=== PATIENT | male | born 1990 | race Caucasian/White ===

== ENCOUNTER 2024-04-03 22:51 | Inpatient (IN) | payer OTHER, SELFPAY ==
[2024-04-03] MEDS: DILAUDID 0.5 MG IV (18:11)
[2024-04-03] MEDS: ZOFRAN 4 MG IV (18:12)
[2024-04-03 18:19] VITALS: BP 127/68
[2024-04-03 18:23] VITALS: BMI 29.5
[2024-04-03] MEDS: NSS 1000 IV ×2 (18:29→23:56)
[2024-04-03] MEDS: TORADOL 30 MG IV (18:29)
[2024-04-03 18:41] LABS: % Basophils 0.4 % (0-2); % Eosinophils 0.3 % (0-6); % Immature Granulocytes 0.4 % (0-0.5); % Lymphocytes 10.6 % (20.5-51.1); % Neutrophils 78.3 % (42.2-75.2); Absolute Basophils 0.1 10^3/uL (0-0.2); Absolute Eosinophils 0.1 10^3/uL (0-0.7); Absolute Immature Granulocytes 0.1 10^3/uL (0-0.05); Absolute Lymphocytes 1.5 10^3/uL (1.2-3.4); Absolute Monocytes 1.4 10^3/uL (0.1-0.6); Absolute Neutrophils 11.2 10^3/uL (1.4-6.5); Hematocrit 41.5 % (39.0-52.0); Hemoglobin 14.7 g/dL (13.0-18.0); Mean Corp Hgb Conc. 35.4 g/dL (33.0-37.0); Mean Corpuscular Hgb 32.3 pg (27.0-31.0); Mean Corpuscular Volume 91.2 fL (80.0-94.0); Mean Platelet Volume 9.5 fL (7.4-10.4); Nucleated Red Blood Cells % 0 % (-); Platelet Count 261 10^3/uL (130-400); Red Blood Cell Count 4.55 10^6/uL (4.70-6.10); Red Cell Dist. Width 12.7 % (11.5-14.5); White Blood Cell Count 14.3 10^3/uL (4.8-10.8)
--- NOTE | 2024-04-03 19:01 | ED.GENMED ---
History of Present Illness
General
Chief Complaint: Flank Pain
Source: patient
Exam Limitations: none
Time Seen by Provider: 04/03/24 18:04
Nursing documentation reviewed up to this point in time: agreed with
History of Present Illness
History of Present Illness:
The patient is a pleasant 34-year-old man with a past medical history of Down syndrome brought in by his mother for acute onset of left-sided pain and vomiting. Patient is a vague historian, as mom states is his normal baseline. Mom denies a
history of kidney stones in the past. Patient found to have a fever on arrival. Mom states he was completely fine earlier in the day
Mom reports that he was recently diagnosed with folliculitis and has taken at least 7 days of Bactrim. Mom reports that this rash is all over his body and has been causing him to be very itchy.
Past History
Past History
ED Past Medical History: IDDM and Other (Down syndrome, celiac disease)
ED Past Surgical History: Orthopedic and Other (hernia)
Social History
Tobacco: Non-smoker
Alcohol: None
Drug: None
Personal: Single
Living: with family
Employment: Disabled
Family History
Family History: Other (He has a sister who is an insulin-dependent diabetic his sister also has asthma and asked her dystrophy)
Review of Systems
Review of Systems
Allergies reviewed?: Yes
Other source history: family
All Other Systems: ROS reviewed and negative except as documented in HPI and ROS
Constitutional: Reports no symptoms
EENT: Reports no symptoms
Respiratory: Reports no symptoms
Cardiac: Reports no symptoms
ABD/GI: Reports vomiting
: Reports flank pain
Musculoskeletal: Reports no symptoms
Skin: Reports itching and rash (Itchy rash for several days to weeks all over body)
Neurological: Reports no symptoms
Endocrine: Reports no symptoms
Hematologic/Lymphatic: Reports no symptoms
Psychiatric: Reports no symptoms
Phy Exam
Physical Exam
Physical Exam:
Physical Exam
General: Patient appears very uncomfortable. He is vomiting
Neck: supple. no meningeal signs. normal psoterior pharynx
Heart: s1/s2 regular rate and rhythm, no murmur. equal radial pulses.
Lungs: no acute respiratory distress. clear bilaterally
Abdomen: normal bowel sounds. not tender. no CVAT, no pulsatile mass
Neuro: alert and oriented. no focal neurological deficits
Skin: no rash
Psychiatric: well kept. interactive and cooperative
Extremities: no edema. no calf tenderness. negative homans. good distal pulses
Course
Orders/Labs/Results
Orders:
Orders
04/03/24 18:04
HYDROmorphone [Dilaudid] 0.5 mg IV NOW STA
04/03/24 18:05
Ondansetron Injectable [Zofran] 4 mg IV NOW STA
04/03/24 18:23
Ketorolac [Toradol] 30 mg IV NOW STA
04/03/24 18:24
0.9% Sodium Chloride 1000 ml [Nss] 1,000 ml IV BOLUS
04/03/24 18:33
Complete Blood Count/With Diff Urgent
Comprehensive Metabolic Panel Urgent
04/03/24 18:57
Urinalysis Reflex To Culture Urgent
Date Specimen was Collected: 04/03/24
Time Specimen was Collected: 18:56
Urine Microscopic Reflex Cult Urgent
04/03/24 19:27
CT Abd/pelvis W Iv Cont Urgent
Comment:
Reason For Exam: fever, left flank pain
04/03/24 20:59
Lactic Acid Urgent
Abnormal Lab Results
04/03/24 04/03/24
18:33 18:57
WBC 14.3 H 10^3/uL
(4.8-10.8)
RBC 4.55 L 10^6/uL
(4.70-6.10)
MCH 32.3 H pg
(27.0-31.0)
Abs Immat Gran (auto) 0.1 H 10^3/uL
(0-0.05)
Absolute Neuts (auto) 11.2 H 10^3/uL
(1.4-6.5)
Absolute Monos (auto) 1.4 H 10^3/uL
(0.1-0.6)
Neutrophils % 78.3 H %
(42.2-75.2)
Lymphocytes % 10.6 L %
(20.5-51.1)
Monocytes % 10.0 H %
(1.7-9.3)
Chloride 95 L mmol/L
(98-107)
Glucose 207 H mg/dl
(70-99)
Urine Ketones 1+ A
(Negative)
Ur Occult Blood Reflex 1+ A
(Negative)
Urine Bacteria (Reflex) Few A
(Negative)
04/03/24 18:33
04/03/24 18:33
Vital Signs
Initial and Last Documented VS:
Initial Vital Signs
Temp Pulse Resp BP Pulse Ox
100.4 F H 103 19 127/68 94
04/03/24 18:19 04/03/24 18:19 04/03/24 18:19 04/03/24 18:19 04/03/24 18:19
Last Documented Vital Signs
Temp Pulse Resp BP Pulse Ox
100.4 F H 103 19 127/68 94
04/03/24 18:19 04/03/24 18:19 04/03/24 18:19 04/03/24 18:19 04/03/24 18:19
MDM/Problems Addressed
Differential Diagnosis Includes:
Left renal colic, pyelonephritis, acute diverticulitis, aortic dissection
MDM/Problems Addressed:
Patient presents with acute left flank pain and vomiting
Chronic conditions affecting care: DM
Acute Exacerbation and/or Progression of Chronic Illness: DM
*Radiology
Radiology exam reviewed: radiology read reviewed
*Pulse Oximetry
Patient hypoxic: no
*Critical Care Nurse Practitioner Interpretation
Rate: normal
Interpretation: normal
Rhythm: sinus
*Critical Care Note
Total Time (30-74mins, 75-104mins- exclusive of procedures): Not Applicable
Data Reviewed
Review of Other/Old Records Reveals: Radiology Studies (CT abdomen pelvis reviewed from 2019 which shows possible enteritis)
Source: patient and family (Mother)
Update Note
Update Note:
Patient still has left flank pain and appears flushed. CAT scan does not show clear cause of left flank pain and vomiting. Patient has had no diarrhea. I am still concerned patient may have an infected stone. Patient is hemodynamically stable
and there is no sign of sepsis.
ED Attending Note
-
Portions of this chart may have been created with voice recognition software.� Occasional wrong word or��sound alike� substitutions may have occurred due to the inherent limitations of voice recognition software.
Discharge Plan
Departure
Patient Disposition: Admit
Date of Disposition: 04/03/24
Time of Disposition: 20:59
Admit to: Med/Surg
Presentation/result/management discussed w/ accepting MD/DO: Hospitalist
Patient with high blood pressure during this ER visit?: Yes
Condition: Good
Covid-19: Not Applicable
Discharge Problem:
Fever, Acute abdominal pain in left flank
Prescriptions:
No Action
insulin glargine [Lantus U-100 Insulin] 1,000 UNITS/10 ML solution
29 units SC .AM
insulin glargine [Lantus U-100 Insulin] 1,000 UNITS/10 ML solution
15 units SC HS
insulin lispro [Humalog U-100 Insulin] 100 UNIT/ML solution
3 - 12 unit SC HS
insulin lispro [Humalog U-100 Insulin] 100 UNIT/ML solution
5 - 10 unit SC BID@1130
insulin lispro [Humalog U-100 Insulin] 100 UNIT/ML solution
2 - 8 unit SC DAILY@0730
loratadine 10 MG capsule
10 mg PO DAILY
insulin lispro 100 UNIT/ML insulin pen, half-unit
12 - 15 unit SQ .1630 DINNER TIME
prochlorperazine maleate 10 MG tablet
10 mg PO Q6HPRN PRN (Reason: Nausea) Qty: 10 0RF
Referrals:
Cipriano Llanes MD [Primary Care Provider] -
Interventions
Interventions:
*General Assessment Last Done: 04/03/24 18:23
*Neglect/Abuse Screening Last Done: 04/03/24 18:23
*ED COVID-19 Vaccine History Last Done: 04/03/24 18:23
TA-Ohefty-Ftamvpdvzr Assessment Last Done: 04/03/24 18:27
ED-Male Genitourinary Assessment Last Done: 04/03/24 18:27
Discharge Date and Time
Print Language: BRUNEIAN
[2024-04-03 19:03] LABS: ALT (SGPT) 34 U/L (0-50); AST (SGOT) 28 U/L (17-59); Albumin 4.4 g/dl (3.5-5.0); Alkaline Phosphatase 104 U/L (38-126); Blood Urea Nitrogen 20 mg/dl (9-20); Calcium 9.2 mg/dl (8.4-10.2); Carbon Dioxide 22 mmol/L (22-30); Chloride 95 mmol/L (98-107); Estimated Creatinine Clearance 68 ml/min; Glucose 207 mg/dl (70-99); Sodium 135 mmol/L (135-145); Total Bilirubin 0.9 mg/dl (0.2-1.3); Total Protein 7.7 g/dl (6.3-8.2); eGFR > 60.00
[2024-04-03 19:21] LABS: Urine Albumin Trace (Neg - Trace); Urine Bilirubin Negative (Negative); Urine Character Clear (Clear); Urine Color Yellow; Urine Glucose Negative (Negative); Urine Ketone 1+ (Negative); Urine Leukocyte Negative (Negative); Urine Nitrite Negative (Negative); Urine Occult Blood 1+ (Negative); Urine Specific Gravity 1.025 (<1.030); Urine Urobilinogen Negative (Neg - 1+)
[2024-04-03 19:29] LABS: Urine Bacteria Few (Negative); Urine Red Blood Cell 0-2 /HPF (0-2); Urine Squamous Cell 0-2 /LPF (Few); Urine White Cell 0-2 /HPF (0-5)
--- NOTE | 2024-04-03 21:16 | HPS.HSE ---
Family Physician
-
Family Physician: Cipriano Llanes
Chief Complaint
-
Right flank pain with vomiting, follicular rash abdomen, groin, buttocks expanding
History of Present Illness
34-year-old male with history of Down syndrome brought in by his mother for acute onset of right-sided flank pain with vomiting. Mom is giving his medical history states he is at his normal baseline. No history of prior renal calculi. He was
noted to be febrile 100.4 F with tachycardia and leukocytosis in the ER. He was recently on Bactrim x 7 days for folliculitis to his abdomen, groin and buttocks with excoriation from scratching. He was on prior Keflex for same symptoms. His
mother reports the rash now started spreading scattered to arms, legs and trunk. He is itching despite 50 mg of Benadryl twice daily. He normally takes loratadine for seasonal allergies she has been holding due to giving him Benadryl. Patient
points to his right flank area and states I have pain in my back. He has CVA tenderness on exam of the right flank. He denies any cough, chest pain, shortness of breath, diarrhea, dysuria, headache. He has past medical history of Down syndrome,
celiac disease, IDDM since age 8 months.
Medical History
Past Medical History
Past Medical History: Reports Other
Additional Past Medical History:
Down syndrome
IDDM since age 8 months old
Celiac disease
Past Surgical History: Reports Other
Additional Past Surgical History:
Hernia repair
Social History
Tobacco: Non-smoker
Alcohol: None
Drug: None
Personal: Single
Living: With Family
Employment: Disabled
Family History
Family History: Not pertinent
Allergies / Home Medications
Allergies reflects when Allergies were last updated in [facility].
Home Medications with original date entered in [facility]
Allergy/Medication List:
Allergies
Allergy/AdvReac Type Severity Reaction Status Date / Time
No Known Allergies Allergy Verified 12/14/22 17:46
Home Medications
loratadine 10 mg capsule 10 mg PO DAILY 09/20/20
diphenhydramine HCl 50 mg capsule 100 mg PO Q6HPRN PRN rash 04/03/24
insulin detemir U-100 100 unit/mL subcutaneous solution (Levemir U-100 Insulin) 12 unit SC HS 04/03/24
insulin detemir U-100 100 unit/mL subcutaneous solution (Levemir U-100 Insulin) 29 unit SC DAILY 04/03/24
insulin lispro 100 unit/mL subcutaneous solution 0 sliding scale dose SC ACHS 04/03/24
sulfamethoxazole 800 mg-trimethoprim 160 mg tablet (Bactrim DS) 1 tab PO BID 04/03/24
Review of Systems
-
History Source: Patient and Family (Mother and father at bedside)
A 12 point ROS was completed and negative except as noted: Yes
Constitutional: Reports Fever; Denies Chills
EENT: Denies Sore Throat or Runny Nose
Respiratory: Denies Cough or Trouble Breathing
Cardiac: Denies Chest Pain, Diaphoresis or Palpitations
Abdomen/GI: Reports Vomiting; Denies Abdominal Pain, Nausea, Diarrhea, Constipated, Bloody Stools or Black Stools
: Reports Flank Pain (Right); Denies Dysuria, Incontinence or Difficulty Voiding
Musculoskeletal: Denies Joint Pain or Edema
Skin: Reports Itching and Rash (Follicular rash to abdomen, groin buttocks with excoriation from scratching, follicular scattered rash to arms, legs and trunk)
Neurological: Denies Dizzy or Headache
Endocrine: Reports No Symptoms
Hematologic/Lymphatic: Reports No Symptoms
Psych: Reports Calm
Physical Exam
Vital Signs
Vital Signs
Temp Pulse Resp BP Pulse Ox
100.4 F H 103 19 127/68 94
04/03/24 18:19 04/03/24 18:19 04/03/24 18:19 04/03/24 18:19 04/03/24 18:19
Physical Exam
General: Comfortable, Conversant and Fever
HEENT: NormoCephalic, Anicteric, Moist mucous membranes, PERRLA, [place] Conjunctivae and No Ptosis
Respiratory: Clear; No Wheezes, Rales or Rhonchi
Cardiac: S1/S2 and Tachycardia (Sinus); No Murmur, Rub, Gallop or Peripheral Edema
Breast: Deferred by me
GI: Soft, Non Tender, Non Distended, Normal Bowel Sounds and No Hepatosplenomegaly
Rectal: Deferred by Provider
Genito-urinary: Costovertebral angle tend (Right flank)
Musculoskeletal: Clubbing (All fingernails), No Cyanosis and No Edema
Skin: Warm, Dry and Rash (Follicular rash to abdomen, groin buttocks with excoriation from scratching, follicular scattered rash to arms, legs and trunk); No Jaundice
Neuro: Awake, Alert, Oriented (To first and last name, some of symptoms, mother and father) and No Sensory Deficits; No Slurred Speech, Facial Droop or Tremors
Psych: Calm
Laboratory Results
-
04/03/24 18:33
04/03/24 18:33
Laboratory Results
Total Bilirubin 0.9 mg/dl (0.2-1.3) 04/03/24 18:33
AST 28 U/L (17-59) 04/03/24 18:33
ALT 34 U/L (0-50) 04/03/24 18:33
Alkaline Phosphatase 104 U/L (38-126) 04/03/24 18:33
Impression/Plan
-
Impression/plan:
Admit to MedSurg
# SIRS with Left flank pain concern for poss pyelonephritis
Temp 100.4 F, HR 103, 127/68, WBC 14.3
Patient has been on 7 days of Keflex followed by Bactrim times several days for recent folliculitis could be obscuring urinalysis results today
-Tylenol as needed fever
-IV Zosyn
-Follow urine culture
-Blood culture x 1
-Toradol, Dilaudid prn pain
-Consult Urology- dr orosco looked at ct scan -no stone or obvious pyelo
- CLear liquid
consult I/d
- Iv Nss
follow cbc, cmp
CT abdomen pelvis: Moderate diffuse bladder wall thickening concern for cystitis versus bladder outlet obstruction new.
Findings suggesting mild colitis of the sigmoid colon,
moderate fecal material throughout the colon progress, small pericardial effusion. Stable
#Follicular rash abdomen, groin, buttocks�scattered to arms and legs likely fungal due to no improvement
Patient completed 7 days of Keflex then 7 days of recent Bactrim with no improvement
Rash is excoriated to groin and buttocks with areas of bleeding from scratching
-Will consult ID
-Apply topical myconazole antifungal to groin and buttocks
#IDDM since age 8 months old
-Pt on Levemir 29 units subcu daily, 12 units SQ at bedtime
will put pt on clear liquid diet will give 1/2 dose above insulin regimens
-Accu-Cheks before meals and at bedtime, 3 AM with SSI coverage
#Celiac disease
-Celiac diet
DVT prophylaxis
Subcu heparin
Full code
--- NOTE | 2024-04-03 22:34 | W.PN.UPDATE ---
Update Note
Progress Note Update
This is an addendum to the H&P written by Kirsten Wolfe on 04/03/2024. Patient seen and examined independently with [facility] ATTENDANT.
34-year-old male past medical history of Down syndrome, diabetes, celiac disease, presenting with severe right-sided flank pain starting acutely today associated with episode of vomiting. No diarrhea. Also febrile.
Patient has had development of pustular rash involving the abdomen's spreading to the upper extremities and hands as well as face and butt. He was started on Keflex without improvement after week which was switched to Bactrim with worsening of the
rash.
Urinalysis unremarkable. CT abdomen pelvis shows moderate diffuse bladder wall thickening concerning for cystitis versus bladder outlet obstruction. Findings suggesting mild colitis of sigmoid colon.
Patient meets SIRS criteria. Concerned for obstructive nephrolithiasis versus pyelonephritis. Urology looked at CT scan without concern for acute pyelonephritis versus obstructive stone. Clear liquid diet. Check blood culture. IV fluids. Zosyn.
Patient has pustular rash involving abdomen, lower extremities, hands and butt. He is up-to-date with his childhood vaccinations and had chickenpox as a child. Likely folliculitis possibly fungal since no improvement with oral antibiotics vs less
likely scabies. Miconazole topical. ID consulted.
[2024-04-03] MEDS: LANTUS 0.06 UNITS SC (22:36)
[2024-04-03 22:37] LABS: Glucose - Point of Care 260 mg/dl (70-99)
[2024-04-03] MEDS: ZOSYN 50 IV (22:37)
[2024-04-03 23:46] VITALS: BP 109/66
[2024-04-04 00:02] VITALS: BMI 31.1
[2024-04-04] MEDS: DILAUDID 1 MG IV (00:07)
[2024-04-04] MEDS: DESENEX/MITRAZOL/ZEASORB 1 APPLIC TOPICAL ×3 (00:32→20:31)
[2024-04-04 00:55] LABS: Lactic Acid 0.9 mmol/L (0.7-2.0)
[2024-04-04] MEDS: ZOSYN 50 IV ×4 (03:32→22:28)
[2024-04-04] MEDS: ZOFRAN 4 MG IV ×3 (05:53→22:29)
[2024-04-04] MEDS: TORADOL 15 MG IV ×2 (05:53→22:28)
[2024-04-04 06:00] VITALS: BMI 31.1
[2024-04-04 07:30] VITALS: BP 109/57
[2024-04-04 07:36] LABS: % Basophils 0.2 % (0-2); % Immature Granulocytes 0.5 % (0-0.5); % Lymphocytes 3.5 % (20.5-51.1); % Monocytes 8.3 % (1.7-9.3); % Neutrophils 87.5 % (42.2-75.2); Absolute Immature Granulocytes 0.1 10^3/uL (0-0.05); Absolute Lymphocytes 0.5 10^3/uL (1.2-3.4); Absolute Monocytes 1.2 10^3/uL (0.1-0.6); Absolute Neutrophils 13.2 10^3/uL (1.4-6.5); Hematocrit 37.3 % (39.0-52.0); Mean Corp Hgb Conc. 34.9 g/dL (33.0-37.0); Mean Corpuscular Hgb 33.4 pg (27.0-31.0); Mean Corpuscular Volume 95.9 fL (80.0-94.0); Mean Platelet Volume 9.7 fL (7.4-10.4); Nucleated Red Blood Cells % 0 % (-); Platelet Count 214 10^3/uL (130-400); Red Blood Cell Count 3.89 10^6/uL (4.70-6.10); Red Cell Dist. Width 12.9 % (11.5-14.5)
--- NOTE | 2024-04-04 07:52 | W.PN.HOSP.TC ---
Today's Communication/Plan
-
Patient's glucose was found to be 380 after eating breakfast. -Insulin aspart 15 units given immediately to help bring serum glucose level back within normal limits. We will reassess blood glucose prior to him eating his lunch and will determine
whether an increase in basal insulin is warranted.
Assessment / Plan
Assessment / Plan
CC: Flank pain
HPI: Patient is a 34-year-old male with a past medical history of Down syndrome brought in by his mother for acute onset left-sided pain and vomiting. Patient is a poor historian and the mom states that that is his normal baseline. History
obtained from mother. Mom denies a history of kidney stones in the past and the patient was found to have a fever on arrival. Mother stated that he was completely fine earlier in the day. He was recently diagnosed with folliculitis and was given
7 days of Bactrim.
Assessment/Plan:
-SIRS with left flank pain: Monitoring
Concern for possible pyelonephritis
Temperature was 100.4 �F, heart rate at 103, blood pressure 127/68, and white blood cells of 14.3 in the emergency department
Patient had been on 7 days of Keflex followed by Bactrim for recent folliculitis
Antipyretics as needed
IV Zosyn
Await urine culture result
Await blood culture result
Urology consult
Patient on a clear liquid diet
Appreciate infectious diseases consult�they recommend continuing empiric Zosyn for today. There is an unclear etiology for the leukocytosis and cultures are pending. Leukocytosis may be reactive in nature and this can be ascertained following
cultures.
CT of the abdomen and pelvis in the emergency department showed diffuse bladder wall thickening with concern of cystitis versus bladder outlet obstruction. There were findings suggesting mild colitis of the sigmoid colon. Moderate fecal material
throughout the colon.
-Follicular rash of the abdomen, groin, buttocks: Improving
Topical miconazole nitrate given
-Insulin-dependent diabetes: Monitoring-uncontrolled
Patient on Levemir 25 units subcu daily and 12 units subcu at bedtime
Currently uncontrolled - HbA1c is 9
Patient currently on a clear liquid diet
Accu-Cheks before meals and at bedtime
High resistance insulin sliding scale
Patient's glucose was found to be 380 after eating breakfast. -Insulin aspart 15 units given immediately to help bring serum glucose level back within normal limits. We will reassess blood glucose prior to him eating his lunch and will determine
whether an increase in basal insulin is warranted.
We will continue to monitor the patient's anion gap -oral bicarb given
-Celiac disease:
Patient will be resumed on a celiac diet once his diet is advanced.
Full CODE STATUS
DVT prophylaxis: Subcu heparin
Anticipated Discharge: 24 - 48 hours
Subjective/Interval History
-
Date of Service: April 04, 2024
Objective Data
-
Labs:
Labs
04/04/24 06:29
Vital Signs:
Vital Signs
Temp Pulse Resp BP Pulse Ox
98.4 F 103 14 109/66 93
04/03/24 23:46 04/03/24 23:46 04/03/24 23:46 04/03/24 23:46 04/03/24 23:46
I&O
04/03/24 04/04/24 04/05/24
06:59 06:59 06:59
Intake Total 890 / 890
Balance 890 / 890
Review of Systems
-
History Source: Patient
Constitutional: Reports No Symptoms
EENT: Reports No Symptoms Reported
Respiratory: Reports No Symptoms
Cardiac: Reports No Symptoms
Abdomen/GI: Reports Bloated
Breast: Reports No Symptoms
Genitourinary: Reports No Symptoms
Musculoskeletal: Reports No Symptoms
Skin: Reports No Symptoms
Neuro: Reports No Symptoms
Endocrine: Reports No Symptoms
Hematologic / Lymphatic: Reports No Symptoms
Allergy / Immunology: Reports No Symptoms
Physical Exam
-
General: Well Developed, Well Nourished, No Apparent Distress and Other (Mentions mild abdominal bloating)
HEENT: Normocephalic, Atraumatic and Moist Mucous Membranes
Respiratory: Clear to Auscultation
Cardiac: Regular Rhythm and S1/S2
Breast: Deferred by me
GI: Soft, Normal Bowel Sounds and Distended
Rectal: Deferred by Provider
Genito-urinary: Deferred by me
Musculoskeletal: No Clubbing, No Cyanosis and No Edema
Skin: Warm and Dry
Neuro: Awake, Alert, Oriented and AO x 3
Psych: Calm
[2024-04-04 08:10] LABS: ALT (SGPT) 27 U/L (0-50); AST (SGOT) 23 U/L (17-59); Albumin 3.3 g/dl (3.5-5.0); Alkaline Phosphatase 90 U/L (38-126); Blood Urea Nitrogen 20 mg/dl (9-20); Calcium 8.1 mg/dl (8.4-10.2); Carbon Dioxide 14 mmol/L (22-30); Chloride 99 mmol/L (98-107); Estimated Creatinine Clearance 76 ml/min; Glucose 380 mg/dl (70-99); Potassium 4.5 mmol/L (3.5-5.1); Sodium 131 mmol/L (135-145); Total Bilirubin 1.4 mg/dl (0.2-1.3); Total Protein 6.1 g/dl (6.3-8.2); eGFR > 60.00
[2024-04-04 08:27] LABS: Glucose - Point of Care 360 mg/dl (70-99)
[2024-04-04] MEDS: NOVOLOG FLEXPEN-HIGH RESISTANCE 12 UNITS SC ×2 (08:34→18:29)
[2024-04-04] MEDS: HEPARIN 5000 UNITS SC ×2 (08:35→20:29)
[2024-04-04] MEDS: CLARITIN 10 MG PO (08:35)
[2024-04-04] MEDS: NSS 1000 IV (09:54)
--- NOTE | 2024-04-04 10:44 | CM ---
Reviewed the chart notes and spoke with the patient and mother at the bedside. The patient resides with his mother in a one story home with one step to enter. The mother reports no DME/VN/SNF in the past. The patient has a caregiver Sunday
through Sunday from 8am-4pm through the waiver program. The patient's pharmacy of choice is the [facility]. CM continues to be available to patient/family and is monitoring medical plan for needs at discharge.
Plan: Discharge to home when medically stable. No anticipated needs identified at this time.
[2024-04-04] MEDS: SODIUM BICARBONATE 1300 MG PO ×3 (11:22→22:45)
[2024-04-04] MEDS: LANTUS 0.14 UNITS SC (11:22)
[2024-04-04 11:36] VITALS: BP 85/53; BP 93/54; PULSE 104
[2024-04-04 12:31] LABS: Glucose - Point of Care 503 mg/dl (70-99)
[2024-04-04] MEDS: NOVOLOG FLEXPEN 15 UNITS SC (12:49)
[2024-04-04] MEDS: NOVOLOG FLEXPEN-HIGH RESISTANCE SC ×2 (12:58→17:23)
--- NOTE | 2024-04-04 13:01 | CON.ID ---
Consultation
-
Date/Time Consultation Requested: 04/03/2024 2215
Date/Time Consultation Performed: 04/04/2024 1220
Requesting Provider: Kirsten Wolfe
Performing Provider: Dr. Mcneill
Reason for Consultation: Rash, nausea/vomiting, back pain
Chief Complaint / Past History
History of Present Illness
Angelito Gatica is a 34-year-old man with a significant past medical history of Down syndrome being evaluated at the request of Kirsten Wolfe in regards to back pain, folliculitis and an episode of nausea and vomiting. History is obtained from chart
review, along with patient interview, and history obtained from the patient's mother was at the bedside.
The patient's mom reports that approximately 2 weeks ago he had an episode of developing some folliculitis in the central chest area. He has had this before, and she reached out to his PCP and was prescribed Keflex for 7 days. Around the same time
he also developed some flank rash, which she is not sure whether it was related, but it did precede the initiation of antibiotics. Over the next week there was little improvement, and approximately 7 days ago the patient was transitioned to
Bactrim, again with little improvement in the lateral abdominal rash, but with some noted extension into the groin area.
Yesterday, the patient was with his caregiver and developed some severe back pain, along with several episodes of vomiting. Because this is out of his normal, he was brought to the emergency room for further evaluation. Here he was found to have a
leukocytosis. Workup for potential nephrolithiasis is negative, and Infectious Diseases is asked to comment upon further antimicrobial recommendations.
At present, the patient reports that he is feeling somewhat improved, and notes no pain at the present. The rash is noted to be somewhat pruritic, and the mother reports that she has been giving him Benadryl, again without any change in the rash
but does take away some of the pruritus. She notes that the patient uses cotton undergarments, and does often sweat at night. He also bathes daily.
Past History
Additional Past Medical History:
IDDM (uncontrolled; HbA1c = 9)
Down syndrome
Celiac disease
Additional Past Surgical History:
Hernia repair
Cholecystectomy
Allergy History:
No Known Allergies Allergy (Verified 12/14/22 17:46)
Medications Reviewed: Yes
Current Antibiotics:
Zosyn 3.375 g IV every 6 hours
Social History
Tobacco: Non-Smoker
Alcohol: None
Drug: None
Personal: Single
Living: With Family
Employment: Not Employed
Family History
Family History: Not Pertinent
Review of Systems
Vital Signs
Temp Pulse Resp BP Pulse Ox
98.7 F 104 16 109/57 94
04/04/24 07:30 04/04/24 07:30 04/04/24 07:30 04/04/24 07:30 04/04/24 07:30
Physical Exam
Physical Exam
Constitutional: No Acute Distress, Comfortable and Non-toxic
Eyes: Pupils Equal, Pupils Round, No Conjunctival Hemorrhage and Sclera Anicteric
Oral: No Thrush and No Ulcers
Cardiovascular: Regular Rate and S1/S2; Negative S3/S4
Pulmonary: Clear; Negative Wheezes, Rales or Rhonchi
Gastrointestinal: Soft, Non Tender, Non Distended, Normal Bowel Sounds, No Rebound and No Guarding
Genito-Urinary: Negative Malik or CVA Tenderness
Extremities: Negative Edema, Cyanosis or Erythema
Skin: Rash (Maculopapular rash noted on lateral abdominal area, and the inferior pectoral area, and also the medial proximal thigh area.)
Neurological: Awake and Alert
Psychological: Calm
.
Lab / Diagnostic Study Results
04/04/24 06:29
Abs Immat Gran (auto) 0.1 10^3/uL (0-0.05) H 04/04/24 06:29
Absolute Neuts (auto) 13.2 10^3/uL (1.4-6.5) H 04/04/24 06:29
Absolute Lymphs (auto) 0.5 10^3/uL (1.2-3.4) L 04/04/24 06:29
Absolute Monos (auto) 1.2 10^3/uL (0.1-0.6) H 04/04/24 06:29
Absolute Basos (auto) 0.0 10^3/uL (0-0.2) 04/04/24 06:29
Immature Gran % 0.5 % (0-0.5) 04/04/24 06:29
Neutrophils % 87.5 % (42.2-75.2) H 04/04/24 06:29
Lymphocytes % 3.5 % (20.5-51.1) L 04/04/24 06:29
Monocytes % 8.3 % (1.7-9.3) 04/04/24 06:29
Eosinophils % 0.0 % (0-6) 04/04/24 06:29
Basophils % 0.2 % (0-2) 04/04/24 06:29
Lactic Acid 0.9 mmol/L (0.7-2.0) 04/04/24 00:24
Ur Squamous Epith Cells 0-2 /LPF (Few) 04/03/24 18:57
Microbiology Results
Micro:
04/04/24 00:24 Blood Culture - Pending
Blood/Venous
04/03/24 18:57 Urine Culture - Pending
Urine
Imaging:
04/03/2024 CT abdomen/pelvis with IV contrast: Moderate diffuse bladder wall thickening concerning for cystitis versus bladder outlet obstruction. Findings suggesting mild colitis of the sigmoid colon. Moderate fecal matter throughout the colon.
Small pericardial effusion. Please see full dictation for additional detail. Film personally viewed.
Assessment / Plan
Nausea/vomiting; improved
Back pain; improved
Leukocytosis
Rash; suspect cutaneous candidiasis
IDDM (uncontrolled; HbA1c = 9)
Down syndrome
Celiac disease
Recommendations:
Agree with topical miconazole powder. Will follow for improvement in rash.
Would continue with empiric Zosyn for today. Etiology of ongoing leukocytosis not clear, but cultures are pending. Ultimately, may be reactive in nature.
Follow white count and temperature curve.
Follow-up pending cultures (blood, urine)
Further recommendations as additional data is returned.
--- NOTE | 2024-04-04 14:26 | W.PN.UPDATE ---
Addendum entered and electronically signed by Alexx Molina MD 04/04/24 17:15:
Patient blood glucose remains significantly uncontrolled
Currently on liquid diet only
Got 15 units NovoLog before lunch for blood glucose of 503, blood glucose check around 1500 was 370 -another 7 unit were provided.
Repeat blood glucose of 419 before dinner, ordering 20 units with repeat check an hour or 2. May require further short acting insulin depending on the number.
Evening Lantus dose increased to 15 unit as well tonight
Per mother patient unable to vocalize any early symptoms of hypoglycemia and could have seizures from hypoglycemia. High doses of short acting insulin during bedtime needs to be avoided.
Original Note:
Update Note
Progress Note Update
I saw and evaluated the patient. I reviewed the resident�s note and agree with findings and plan as documented in the resident�s note.
1. Mild sigmoid colitis - likely stercoral in nature
-CT abdomen pelvis images reviewed and patient have increased stool burden, mild colitis of sigmoid colon and possibly suggestive stercoral colitis
-Patient have some leukocytosis/febrile in ER, continue monitoring
-Stool softener/laxative regimen as ordered
-Maintain on IV Zosyn for time being
-ID following and help appreciated
2. IDDM - Uncontrolled
AGAP met acidosis
-Patient have increased blood glucose and likely related to ongoing infection
-Providing a higher dose of insulin short acting
-Patient have increasing anion gap metabolic acidosis and likely have some DKA setting in
-If patient blood glucose/acidosis does not improve with subcu insulin and bicarb will require to be transition to IMU for slow insulin drip
3. Bladder wall thickening
-Question of cystitis although UA completely clear
-No signs concerning malignancy
-Urology evaluated in ER?
4. Diffuse skin rash
h/o folliculitis
-drug eruption vs other
-does not look fungal in nature
-will try oral prednisone 20mg/d once BG better controlled
5. Down syndrome
-lives at home with family
-no behavioral problems
DVT PPX - heparin subq
Total time spent : 54 mins
I personally saw and examined the patient.
I have reviewed all diagnostic interpretations and treatment plans as written.
Time includes patient management by me, time spent at the patients bedside, time to review lab and imaging results, discussing patient care, documentation in the medical record, and time spent with the family or caregiver and discussing care plan
with RN/Consultants.
[2024-04-04 14:43] LABS: Glucose - Point of Care 373 mg/dl (70-99)
[2024-04-04 14:45] LABS: Blood Urea Nitrogen 22 mg/dl (9-20); Calcium 8.3 mg/dl (8.4-10.2); Carbon Dioxide 22 mmol/L (22-30); Chloride 96 mmol/L (98-107); Estimated Creatinine Clearance 70 ml/min; Glucose 391 mg/dl (70-99); Potassium 4.4 mmol/L (3.5-5.1); Sodium 131 mmol/L (135-145); eGFR > 60.00
--- NOTE | 2024-04-04 14:47 | CONS.URO ---
Consultation
-
Performing Provider: Peffer
Reason for Consultation: Flank pain, fever
Medical History
History of Present Illness
34M hx of Down syndrome with acute onset of right-sided flank pain with vomiting. Mom is giving his medical history states he was at his normal baseline. No history of prior renal calculi. He was noted to be febrile 100.4 F with tachycardia and
leukocytosis in the ER. He was recently on Bactrim x 7 days for folliculitis to his abdomen, groin and buttocks with excoriation from scratching. He was on prior Keflex for same symptoms. His mother reports the rash started spreading scattered to
arms, legs and trunk.
Per reports patient pointed to his right flank area and states I have pain in my back.
In ER he had CVA tenderness on exam of the right flank.
He denies any urinary symptoms, difficulty voiding, hematuria
No prior hx of stones
In ED his CT showed no hydronephrosis or stones. Bladder wall moderately thickened
Ordered PVR which was >300cc
Past Medical History
Past Medical History: Other (Down syndrome, celiac disease, IDDM)
Past Surgical History: None
Social History
Tobacco: Non-smoker
Alcohol: None
Drug: None
Family History
Family History: Reviewed & Not Pertinent
Allergies/Home Medications
Allergies
Allergy/AdvReac Type Severity Reaction Status Date / Time
No Known Allergies Allergy Verified 12/14/22 17:46
Home Medications
�Medication �Instructions �Recorded �Confirmed �Type
loratadine 10 mg capsule 10 mg PO DAILY Allergies 09/20/20 04/03/24 History
diphenhydramine HCl 50 mg capsule 100 mg PO Q6HPRN PRN rash 04/03/24 04/03/24 History
insulin detemir U-100 100 unit/mL 12 unit SC HS Diabetes 04/03/24 04/03/24 History
subcutaneous solution (Levemir
U-100 Insulin)
insulin detemir U-100 100 unit/mL 29 unit SC DAILY Diabetes 04/03/24 04/03/24 History
subcutaneous solution (Levemir
U-100 Insulin)
insulin lispro 100 unit/mL 0 sliding scale dose SC ACHS 04/03/24 04/03/24 History
subcutaneous solution Diabetes
sulfamethoxazole 800 1 tab PO BID Infection 04/03/24 04/03/24 History
mg-trimethoprim 160 mg tablet
(Bactrim DS)
Physical Exam
Vital Signs
Vital Signs
Temp Pulse Resp BP Pulse Ox
98.7 F 104 16 109/57 94
04/04/24 07:30 04/04/24 07:30 04/04/24 07:30 04/04/24 07:30 04/04/24 07:30
Lab / Testing Results
Laboratory Results
04/04/24 06:29
04/04/24 14:10
Physical Exam
General: Well Nourished and No Apparent Distress
Respiratory: Clear
GI: Soft and Non Tender
Genito-urinary: No Costovertebral Tend and Other (no signs of tenderness. Patient says yes to tenderness at all palpated locations on both sides of his upper, middle, lower, and midline back)
Neuro: AO x 3
Psych: Calm
Assessment / Plan
-
34M with Downs syndrome admitted with fever, leukocytosis, worsening pruritic rash despite antibiotics
Also with R flank pain
- No evidence of obstructive uropathy or pyelonephritis as cause of back pain
- CT showing bladder wall thickening - this is likely chronic. CT from 2019 shows a significantly distended bladder suggesting chronic voiding dysfunction. Wall thickening likely represents relative decompression of his abnormally capacious bladder
- 300cc PVR on bladder scan 04/04
- Some concern for neurogenic voiding dysfunction due to diabetes. Given no acute emptying problems, would not recommend any immediate intervention. Recommend outpatient follow up for bladder evaluation. Discussed with family
[2024-04-04 15:26] VITALS: BP 98/59
[2024-04-04] MEDS: NOVOLOG FLEXPEN 7 UNITS SC (16:05)
[2024-04-04 17:06] LABS: Glucose - Point of Care 419 mg/dl (70-99)
[2024-04-04] MEDS: NOVOLOG FLEXPEN 20 UNITS SC (17:36)
[2024-04-04] MEDS: MIRALAX 17 GRAMS PO (18:10)
[2024-04-04 18:15] LABS: Glucose - Point of Care 351 mg/dl (70-99)
[2024-04-04] MEDS: NOVOLOG FLEXPEN SC (18:28)
[2024-04-04 19:34] LABS: Glucose - Point of Care 296 mg/dl (70-99)
[2024-04-04 22:03] LABS: Glucose - Point of Care 209 mg/dl (70-99)
[2024-04-04] MEDS: LANTUS 0.15 UNITS SC (22:24)
[2024-04-04 23:00] VITALS: BP 115/56
[2024-04-05] MEDS: COMPAZINE 5 MG IV (03:30)
[2024-04-05] MEDS: ZOSYN 50 IV ×3 (03:31→18:43)
[2024-04-05 04:29] LABS: Glucose - Point of Care 344 mg/dl (70-99)
[2024-04-05] MEDS: TORADOL 15 MG IV ×2 (06:23→21:23)
[2024-04-05 07:12] VITALS: BP 91/56
[2024-04-05 08:36] LABS: Glucose - Point of Care 398 mg/dl (70-99)
--- NOTE | 2024-04-05 08:52 | W.PN.HOSP.TC ---
Addendum entered and electronically signed by Alexx Molina MD 04/05/24 10:03:
Correction:
Provide of 10 U lantus to make total of 30 U for AM dose ( home dose )
Original Note:
Today's Communication/Plan
-
see note
Assessment / Plan
Assessment / Plan
1. Mild sigmoid colitis - likely stercoral in nature
-CT abdomen pelvis images reviewed and patient have increased stool burden, mild colitis of sigmoid colon and possibly suggestive stercoral colitis
-Patient have some leukocytosis/febrile in ER, continue monitoring
-Patient had a BM with Stool softener/laxative
-F/u Morning labs, pending at the time of documentation
-Maintain on IV Zosyn for time being
-ID following and help appreciated
2. IDDM - Uncontrolled
AGAP met acidosis - resolved
-Patient have increased blood glucose and likely related to ongoing infection
-Providing a higher dose of insulin short acting
-Patient have increasing anion gap metabolic acidosis and concern of DKA setting in.
-Hbga1c of 9.
-Patient requiring very high dose of short acting insulin to control BG. increasing premeal to 15 U AC with high resistance ISS
-Lantus dose increased 20U AM and 15U PM
-Diabetic BALLAST CLEANING OPERATOR consulted
3. Bladder wall thickening
-Question of cystitis although UA completely clear
-No signs concerning malignancy
-Urology evaluated in ER?
4. Diffuse skin rash
h/o folliculitis
-drug eruption vs other
-does not look fungal in nature
-will try oral prednisone 20mg/d once BG better controlled
5. Down syndrome
-lives at home with family
-no behavioral problems
DVT PPX - heparin subq
Total time spent : 52 mins
Anticipated Discharge: 24 - 48 hours
Subjective/Interval History
-
Date of Service: April 05, 2024
denies abd pain/nausea/vomiting
no fever overnight
reported BM overnight
Objective Data
-
Labs:
Laboratory Results
04/05/24
06:00
WBC Pending
Hgb Pending
Hct Pending
Plt Count Pending
Sodium Pending
Potassium Pending
Chloride Pending
Carbon Dioxide Pending
BUN Pending
Creatinine Pending
Glucose Pending
Calcium Pending
Total Bilirubin Pending
AST Pending
ALT Pending
Alkaline Phosphatase Pending
Vital Signs:
Vital Signs
Temp Pulse Resp BP Pulse Ox
98.8 F 106 20 115/56 93
04/04/24 23:00 04/04/24 23:00 04/04/24 23:00 04/04/24 23:00 04/05/24 01:49
I&O
04/04/24 04/05/24 04/06/24
06:59 06:59 06:59
Intake Total 890 / 890 1480 / 1480
Balance 890 / 890 1480 / 1480
Review of Systems
-
Respiratory: Reports No Symptoms
Cardiac: Reports No Symptoms
Abdomen/GI: Reports No Symptoms
Physical Exam
-
General: No Apparent Distress and Comfortable
HEENT: Negative Oxygen
Respiratory: Clear to Auscultation
Cardiac: Regular Rhythm and S1/S2; Negative Murmur or Rub
GI: Soft, Nontender, Nondistended and Normal Bowel Sounds
Musculoskeletal: No Edema
Neuro: Awake, Alert, Oriented, No Motor Deficits and Nonfocal/Grossly Intact
Psych: Calm
[2024-04-05] MEDS: HEPARIN 5000 UNITS SC ×2 (09:07→21:22)
[2024-04-05] MEDS: CLARITIN 10 MG PO (09:07)
[2024-04-05] MEDS: SODIUM BICARBONATE 1300 MG PO (09:07)
[2024-04-05] MEDS: LANTUS 0.2 UNITS SC (09:09)
[2024-04-05] MEDS: NOVOLOG FLEXPEN-HIGH RESISTANCE 12 UNITS SC (09:10)
[2024-04-05] MEDS: MIRALAX 17 GRAMS PO (09:11)
[2024-04-05] MEDS: DESENEX/MITRAZOL/ZEASORB 1 APPLIC TOPICAL ×2 (09:19→21:22)
[2024-04-05] MEDS: NOVOLOG FLEXPEN 10 UNITS SC (09:25)
[2024-04-05] MEDS: NOVOLOG FLEXPEN 5 UNITS SC (09:59)
[2024-04-05] MEDS: LANTUS 0.1 UNITS SC (10:24)
[2024-04-05 11:24] LABS: Glucose - Point of Care 417 mg/dl (70-99)
--- NOTE | 2024-04-05 11:30 | PTCARENOTE ---
Pt sugars have been running high and difficult to control. Lunchtime glucose taken. Sugar out of range. Stat glucose ordered. MD working this am to gain control of pt's high sugars see pt's MAR and doctors orders. I was just going in to give pt
Novolog 34units per MD orders according to stat glucose results of 417 and mother just stated that she gave her son at 11:54 15 units of Humalog for her sugar that she obtained of 524. Information then given to MD and pipe and boiler covers supervisor for further
discussion of care. Will cont to monitor. pt's
--- NOTE | 2024-04-05 12:09 | W.PN.UPDATE ---
Addendum entered and electronically signed by Alexx Molina MD 04/05/24 13:28:
Discussed the blood glucose issues with both parents at bed.
Patient father accusatory of not addressing BG '' where were you for yesterday ? '. Informed that patient is getting step kuo escalating dose of novolog > got 32 units at dinner yesterday (reported home dose of 10-15 U)
BG remains uncontrolled and was planned to give ~ 35 units of novolog for lunch but mother ended up giving Lispro 15u @ 1200 from home supply
I have reinforced that they are not allowed to do this and putting patient at risk
Father remains accusatory for ' mis managing ' insulin regimen. Clearly miss the insight on how diabetes is managed and what is a safe strategy to increase insulin regimen
They have requested different hospitalist to see their son and will discuss with group if different hospitalist will be able to take care of this patient.
For now patient to be transferred to IMU on insulin drip @ 5u/hrs with accucheck q2h.
Original Note:
Update Note
Progress Note Update
RN notified that patient mother have gave her home dose of Insulin lispro 15 Units
Plan was to provide patient 34 U of novlog to cover for BG of 417.
Patient mother is hindrance to patient care and potentially increase chance of medical error and hypoglycemic complications.
We will notify hospital administration of this issues.
[2024-04-05 12:19] LABS: % Basophils 0.4 % (0-2); % Eosinophils 0.1 % (0-6); % Immature Granulocytes 0.4 % (0-0.5); % Lymphocytes 4.8 % (20.5-51.1); % Monocytes 6.6 % (1.7-9.3); % Neutrophils 87.7 % (42.2-75.2); Absolute Lymphocytes 0.5 10^3/uL (1.2-3.4); Absolute Monocytes 0.8 10^3/uL (0.1-0.6); Hematocrit 34.3 % (39.0-52.0); Hemoglobin 12.2 g/dL (13.0-18.0); Mean Corp Hgb Conc. 35.6 g/dL (33.0-37.0); Mean Corpuscular Hgb 34.3 pg (27.0-31.0); Mean Corpuscular Volume 96.3 fL (80.0-94.0); Mean Platelet Volume 9.8 fL (7.4-10.4); Nucleated Red Blood Cells % 0 % (-); Platelet Count 198 10^3/uL (130-400); Red Blood Cell Count 3.56 10^6/uL (4.70-6.10); White Blood Cell Count 11.3 10^3/uL (4.8-10.8)
[2024-04-05 12:46] LABS: ALT (SGPT) 42 U/L (0-50); AST (SGOT) 35 U/L (17-59); Alkaline Phosphatase 104 U/L (38-126); Blood Urea Nitrogen 19 mg/dl (9-20); Calcium 8.2 mg/dl (8.4-10.2); Carbon Dioxide 22 mmol/L (22-30); Chloride 98 mmol/L (98-107); Estimated Creatinine Clearance 70 ml/min; Glucose 472 mg/dl (70-99); Potassium 4.4 mmol/L (3.5-5.1); Sodium 133 mmol/L (135-145); Total Bilirubin 1.1 mg/dl (0.2-1.3); Total Protein 5.9 g/dl (6.3-8.2); eGFR > 60.00
[2024-04-05] MEDS: NOVOLOG FLEXPEN-HIGH RESISTANCE SC (13:25)
[2024-04-05] MEDS: NOVOLIN R INSULIN INFUSION 100 IV (13:56)
--- NOTE | 2024-04-05 14:00 | PTCARENOTE ---
Report given to Cathy in IMU and awaiting a clean bed. Family informed of process. Insulin drip hung at 14:00 at 5 units/hr via right forearm. Mom and Dad at bedside. Will cont to monitor.
--- NOTE | 2024-04-05 14:04 | CM ---
Patient and mother seen at bedside. Patient mother expressed concerns about sugars, and nursing/physician working with patient and mother. Plan is for patient to return home with family when medically appropriate. CM will continue to follow for
discharge planning needs.
Plan; home with no needs anticipated.
[2024-04-05 16:41] LABS: Glucose - Point of Care 215 mg/dl (70-99)
[2024-04-05 16:44] VITALS: BP 137/120
[2024-04-05 16:48] VITALS: BP 112/64
[2024-04-05] MEDS: TYLENOL 650 MG PO (16:57)
--- NOTE | 2024-04-05 17:51 | PTCARENOTE ---
pt w/ insulin drip going through current IV site. Awaiting placement of second IV in order to hang abx.
[2024-04-05 18:36] LABS: Glucose - Point of Care 179 mg/dl (70-99)
[2024-04-05] MEDS: ZOFRAN 4 MG IV (18:43)
[2024-04-05 19:43] VITALS: BP 109/69
[2024-04-05 20:27] LABS: Glucose - Point of Care 163 mg/dl (70-99)
[2024-04-05 21:41] LABS: Blood Urea Nitrogen 16 mg/dl (9-20); Calcium 8.3 mg/dl (8.4-10.2); Carbon Dioxide 24 mmol/L (22-30); Chloride 100 mmol/L (98-107); Estimated Creatinine Clearance 91 ml/min; Glucose 196 mg/dl (70-99); Potassium 4.1 mmol/L (3.5-5.1); Sodium 134 mmol/L (135-145); eGFR > 60.00
[2024-04-05 22:34] LABS: Glucose - Point of Care 191 mg/dl (70-99)
[2024-04-05 22:51] VITALS: BP 110/65
[2024-04-05] MEDS: KCL 510 MEQ IV (23:16)
[2024-04-06] VITALS (8 sets, daily range): BP systolic 97–128; BP diastolic 68–90; BMI 31.3
[2024-04-06 00:40] LABS: Glucose - Point of Care 228 mg/dl (70-99)
[2024-04-06] MEDS: ZOSYN 50 IV ×2 (01:10→06:40)
[2024-04-06 02:35] LABS: Glucose - Point of Care 211 mg/dl (70-99)
--- NOTE | 2024-04-06 03:33 | PTCARENOTE ---
Pt able to make needs known. Made MORTGAGE ACCOUNTING CLERK aware of Pt glucose being below 200, D5/0.45NaCL with KCL 20 blue ordered. Insulin gtt titrated per protocol. Pt having back and some belly pain at times, repositioned and medication given see AUG. Emotional
support given. Reassessment Pt had relief with medication. Pt having 2 loose stools over night with flatulence. Pt feeling better after having BM. Call wolf within reach. Bed alarm on. Assessment care and vitals as charted.
[2024-04-06] MEDS: TORADOL 15 MG IV ×3 (03:40→20:01)
[2024-04-06 04:36] LABS: Glucose - Point of Care 225 mg/dl (70-99)
[2024-04-06 06:43] LABS: Glucose - Point of Care 173 mg/dl (70-99)
[2024-04-06 08:00] LABS: % Basophils 0.3 % (0-2); % Eosinophils 1.9 % (0-6); % Immature Granulocytes 0.6 % (0-0.5); % Neutrophils 84.2 % (42.2-75.2); Absolute Eosinophils 0.2 10^3/uL (0-0.7); Absolute Immature Granulocytes 0.1 10^3/uL (0-0.05); Absolute Lymphocytes 0.7 10^3/uL (1.2-3.4); Absolute Monocytes 0.8 10^3/uL (0.1-0.6); Absolute Neutrophils 9.6 10^3/uL (1.4-6.5); Hematocrit 35.6 % (39.0-52.0); Hemoglobin 12.6 g/dL (13.0-18.0); Mean Corp Hgb Conc. 35.4 g/dL (33.0-37.0); Mean Corpuscular Hgb 32.6 pg (27.0-31.0); Nucleated Red Blood Cells % 0 % (-); Platelet Count 243 10^3/uL (130-400); Red Blood Cell Count 3.87 10^6/uL (4.70-6.10); White Blood Cell Count 11.4 10^3/uL (4.8-10.8)
[2024-04-06 08:09] LABS: Glucose - Point of Care 133 mg/dl (70-99)
[2024-04-06] MEDS: ULTRAM 25 MG PO (08:29)
[2024-04-06] MEDS: CLARITIN 10 MG PO (08:30)
[2024-04-06] MEDS: HEPARIN 5000 UNITS SC ×2 (08:35→21:14)
[2024-04-06] MEDS: MIRALAX PO (08:42)
[2024-04-06] MEDS: DESENEX/MITRAZOL/ZEASORB 1 APPLIC TOPICAL ×2 (08:42→20:05)
--- NOTE | 2024-04-06 08:50 | W.PN.HOSP.TC ---
Today's Communication/Plan
-
see note
Assessment / Plan
Assessment / Plan
1. Mild sigmoid colitis - likely stercoral in nature
-CT abdomen pelvis images reviewed and patient have increased stool burden, mild colitis of sigmoid colon and possibly suggestive stercoral colitis
-Patient have some leukocytosis/febrile in ER, continue monitoring
-ID following and help appreciated
-Continues to spike mild fever
-Have diarrhea overnight with combination of miralax+zosyn, stopping both and change abx to rocephin/flagyl
-Blood cs and urine cs remains neg,
2. IDDM - Uncontrolled
AGAP met acidosis - resolved
-Hbga1c of 9.
-At home on regimen of Lantus 29U AM and 12U HS (nocturnal hypoglycemia causing seizures per mother) and 10-15U premeal Lispro
-BG significantly uncontrolled in the hospital due to combination of infection and dietary indiscretion (RN reported carb heavy food brought in by family)
-Patient premeal NovoLog was escalated rapidly in 48 hrs with patient requiring close to ~ 30-35 U premeal of novolog, BG remains uncontrolled despite that.
-Mother ended up providing home Lispro 15u at lunch on 04/05 - informed mother not allowed to provide home insulin supply in hospital
-Patient transitioned to insulin drip yesterday for BG managment and now BG better controlled.
3. Celiac disease
H/o of diarrhea
-have been seen by [facility] in the office for problem of chronic diarrhea
-SB path in May 10 showing incresed mucosal eosinophils and changes of inflammation in lamina
-Maintain on strict gluten free diet - dietay indescretion with other factor playing role in aggravated diarrhea.
4. Bladder wall thickening
-Question of cystitis although UA completely clear
-No signs concerning malignancy
-Urology evaluated in ER?
5. Diffuse skin rash
h/o folliculitis
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
-Strict gluten free diet is recommended.
-does not look fungal in nature
6. Down syndrome
-lives at home with family
-no behavioral problems
DVT PPX - heparin subq
Total time spent : 53 mins
I will discuss with mother the care plan and will try to transition patient off of the insulin drip if agreeable.
Anticipated Discharge: 24 - 48 hours
Subjective/Interval History
-
Date of Service: April 06, 2024
patient having few loose stool overnight
mild fever of 100.7 F overnight
3-4 attempts of blood draw yesterday and has blood has hemolyzed, patient is anxious.
Objective Data
-
Labs:
Laboratory Results
04/05/24 04/06/24 04/06/24
21:16 06:36 07:44
WBC 11.4 H
Hgb 12.6 L
Hct 35.6 L
Plt Count 243 D
Sodium 134 L Cancelled Pending
Potassium 4.1 Cancelled Pending
Chloride 100 Cancelled Pending
Carbon Dioxide 24 Cancelled Pending
BUN 16 Cancelled Pending
Creatinine 1.0 Cancelled Pending
Glucose 196 H Cancelled Pending
Calcium 8.3 L Cancelled Pending
Total Bilirubin Cancelled Pending
AST Cancelled Pending
ALT Cancelled Pending
Alkaline Phosphatase Cancelled Pending
Vital Signs:
Vital Signs
Temp Pulse Resp BP Pulse Ox
97.4 F 94 26 102/79 93
04/06/24 08:15 04/06/24 06:00 04/06/24 06:00 04/06/24 06:00 04/06/24 03:26
I&O
04/05/24 04/06/24 04/07/24
06:59 06:59 06:59
Intake Total 1480 / 1480 710 / 710
Balance 1480 / 1480 710 / 710
Review of Systems
-
Respiratory: Reports No Symptoms
Cardiac: Reports No Symptoms
Abdomen/GI: Reports No Symptoms
Physical Exam
-
General: Comfortable
HEENT: Negative Oxygen
Respiratory: Clear to Auscultation
Cardiac: Regular Rhythm and S1/S2; Negative Murmur or Rub
GI: Soft, Normal Bowel Sounds and Tender
Musculoskeletal: No Edema
Neuro: Awake, Alert, Oriented, No Motor Deficits and Nonfocal/Grossly Intact
Psych: Calm
[2024-04-06] MEDS: STERILE WATER FOR INJECTION 10 ML IV (09:59)
[2024-04-06] MEDS: FLAGYL 500 MG 100 IV ×2 (09:59→18:18)
[2024-04-06] MEDS: ROCEPHIN 1000 MG IV (09:59)
[2024-04-06 10:30] LABS: Glucose - Point of Care 126 mg/dl (70-99)
[2024-04-06 12:28] LABS: Glucose - Point of Care 280 mg/dl (70-99)
[2024-04-06] MEDS: ZOFRAN 4 MG IV ×2 (12:38→20:10)
[2024-04-06 14:55] LABS: Glucose - Point of Care 270 mg/dl (70-99)
--- NOTE | 2024-04-06 15:31 | PTCARENOTE ---
This RN spoke with nursing supervisor area regarding pt mother bringing in pt service dog to visit. Office Rental Clerk gave approval.
[2024-04-06 16:30] LABS: Glucose - Point of Care 240 mg/dl (70-99)
[2024-04-06] MEDS: NOVOLIN R INSULIN INFUSION 100 IV (17:47)
[2024-04-06 19:04] LABS: Glucose - Point of Care 238 mg/dl (70-99)
[2024-04-06] MEDS: ZOLOFT 25 MG PO (19:58)
[2024-04-06] MEDS: ALPRAZOLAM ODT 0.25 MG PO (20:00)
[2024-04-06 21:22] LABS: Glucose - Point of Care 282 mg/dl (70-99)
--- NOTE | 2024-04-06 22:22 | PTCARENOTE ---
During shift change Pt becoming even more anxious crying out saying 'leave now, im scared' and not wanting any IV's. Pt became over stimulated by beeping of IV pumps and stickers on chest. Pt mother at bed side giving emotional support. RN's in room
lending emotional support. After asking Pt mother if she would be comfortable if this RN reached out to [facility] ELECTRONIC CALIBRATION TECHNICIAN to see if something for anxiety could be ordered. Pt mother very glad for suggestion and would like Pt to have something to help him
calm. Mother informing RN that Pt has had medication for anxiety before with different life events. Night ELECTRONIC CALIBRATION TECHNICIAN placed orders. Medication given. Pt presenting calmer and able to communicate better.
[2024-04-06 23:15] LABS: Glucose - Point of Care 265 mg/dl (70-99)
[2024-04-07] VITALS (12 sets, daily range): BP systolic 102–124; BP diastolic 55–88
[2024-04-07 01:19] LABS: Glucose - Point of Care 265 mg/dl (70-99)
[2024-04-07 03:25] LABS: Glucose - Point of Care 149 mg/dl (70-99)
[2024-04-07] MEDS: FLAGYL 500 MG 100 IV ×2 (03:30→09:27)
[2024-04-07] MEDS: TORADOL 15 MG IV ×2 (03:30→17:07)
[2024-04-07 05:42] LABS: Glucose - Point of Care 193 mg/dl (70-99)
--- NOTE | 2024-04-07 05:49 | PTCARENOTE ---
Pt appearing to sleep well through night. Respirations even unlabored. Morning labs attempted, Pt becoming very upset saying 'no stop, Im scared' emotional support given. Pt continuing to saying 'stop' and pulling away. More emotional support given.
Pt able to calm down and fall back asleep with RN in room. Will try another attempted for labs when more help is available.
[2024-04-07 07:29] LABS: Glucose - Point of Care 229 mg/dl (70-99)
[2024-04-07] MEDS: ALPRAZOLAM ODT 0.25 MG PO ×2 (07:36→17:07)
--- NOTE | 2024-04-07 08:37 | PN.DE.MGMTRT ---
Insulin Management
- -
04/07/2024: Diabetes management Consult
34 year old male with PMH: Down syndrome, IDDM and Celiac disease. Pt with cognitive dysfunction, hx obtained from Mom at bedside and chart review.
Pt presented to the ER c/o back pain, folliculitis, N/V with subsequent development of DKA-->Initiated on DKA protocol. CT A/P--> Mild
A1C on admission 9% Cr 0.9, eGFR >60. Routinely follows with Dr. Brown for diabetes care. Diabetes consult requested due to significantly uncontrolled blood sugars. According to the Mom, pt's home regimen includes Lantus 29U AM and 12U HS
(nocturnal hypoglycemia causing seizures per mother) and sliding scale insulin (10-15U premeal).
Of note, pt had persistent Hyperglycemia yesterday, requiring frequent high doses of NovoLog.
Pt's mom expressing feelings of frustration, stating that her son's blood sugar was mismanaged since admission and that she ended up providing home Lispro 15 u at lunch on 04/05 and she was notified that her actions were against hospital policy.
There was concern of dietary indiscretion ([facility] staff reported high carb foods brought in by family yesterday, although pt's mom seemed to deny that claim)
Pt is awake, Alert, sitting up in chair about to eat breakfast, unable to discuss diabetes mgt.
Remains on DKA protocol, GAP has closed, glucose range 149 to 265, requiring 1-4 units of insulin/hr.
Will transition off insulin drip to SQ insulin. Give Lantus 29 units now. Turn drip off 1 hr after administering Lantus.
Give Lantus 12 units @ HS. NovoLog 15 units AC and moderate corrective with meals
Start AC NovoLog- breakfast tray slip indicates 81 G of CHO and current blood sugar is 241.
Pt's Mom has shared SS scale and ICR that she follows at home for meals.
Will give 1 time dose of NovoLog 21 units. Discussed with pt's Mom, agreeable.
Had a lengthy discussion with Pt's Mom regarding policy and expectations forward.
Diabetes History
- -
Type of Diabetes: 1
Pre-Admission Diabetes Regimen
04/06/24
07:44
Creatinine Cancelled
Lab Results
Hemoglobin A1c 9.0 % (4.0-5.6) H 04/04/24 06:29
Insulin Pump Settings
IP Diabetes Regimen
04/06/24 04/06/24 04/06/24
07:44 10:19 12:14
Glucose Cancelled
POC Glucose 126 H 280 H
04/06/24 04/06/24 04/06/24
14:36 16:18 18:53
Glucose
POC Glucose 270 H 240 H 238 H
04/06/24 04/06/24 04/07/24
21:11 23:03 01:08
Glucose
POC Glucose 282 H 265 H 265 H
04/07/24 04/07/24 04/07/24
03:14 05:30 07:18
Glucose
POC Glucose 149 H 193 H 229 H
Patient Education
[2024-04-07 08:51] LABS: Hematocrit 35.2 % (39.0-52.0); Hemoglobin 12.4 g/dL (13.0-18.0); Mean Corp Hgb Conc. 35.2 g/dL (33.0-37.0); Mean Corpuscular Hgb 33.5 pg (27.0-31.0); Mean Corpuscular Volume 95.1 fL (80.0-94.0); Mean Platelet Volume 9.5 fL (7.4-10.4); Platelet Count 251 10^3/uL (130-400); Red Cell Dist. Width 12.9 % (11.5-14.5); White Blood Cell Count 9.5 10^3/uL (4.8-10.8)
[2024-04-07] MEDS: ZOLOFT 25 MG PO (09:25)
[2024-04-07] MEDS: CLARITIN 10 MG PO (09:25)
[2024-04-07] MEDS: DESENEX/MITRAZOL/ZEASORB 1 APPLIC TOPICAL ×2 (09:26→20:44)
[2024-04-07] MEDS: HEPARIN SC ×2 (09:26→20:43)
[2024-04-07] MEDS: ROCEPHIN 1000 MG IV (09:27)
[2024-04-07] MEDS: STERILE WATER FOR INJECTION 10 ML IV (09:27)
[2024-04-07 09:32] LABS: Blood Urea Nitrogen 15 mg/dl (9-20); Calcium 8.2 mg/dl (8.4-10.2); Carbon Dioxide 23 mmol/L (22-30); Chloride 103 mmol/L (98-107); Estimated Creatinine Clearance 101 ml/min; Glucose 227 mg/dl (70-99); Potassium 4.7 mmol/L (3.5-5.1); Sodium 138 mmol/L (135-145); eGFR > 60.00
--- NOTE | 2024-04-07 09:49 | W.PN.ID1 ---
Addendum entered and electronically signed by Nicolas Mcneill DO 04/07/24 14:45:
I saw and evaluated the patient. I reviewed the resident�s note and agree with findings and plan as documented in the resident�s note.
Patient overall improved. Loose stool improved. White count is normalized.
Transition ceftriaxone to cefdinir 300 mg p.o. twice daily for an additional 5 days.
Transition of metronidazole to twice daily, also to continue for an additional 5 days.
Continue to monitor stool output.
Original Note:
Date of Service
Date of Service: April 07, 2024
Today's Communication
Continue Rocephin/Flagy
Continue miconazole powder
Assessment / Plan
Impression/Assessment:
Leukocytosis downtrending
Rash; suspect cutaneous candidiasis
IDDM (uncontrolled; HbA1c = 9)
Down syndrome
Celiac disease
Recommendations:
CT Abd 04/03: mild colitis of the sigmoid colon
Continue with topical miconazole powder; rash seems to be slowly improving; non-itchy.
Initially on Zosyn but was discontinued due to diarrhea. Now on Rocephin/Flagy (day #2)
Continues to have non bloody watery bowel movements; only 1 episode today.
Follow white count and temperature curve. Currently afebrile.
WBC downtrending
Urine culture 04/03: negative
Blood culture 04/04: negative
Subjective / Review of Systems
Patient and his mother both state that his rash has been getting slowly better and has been less itchy. Patient continues to have loose bowel movements.
Review of Systems: No Fever, No Headache, No Cough and No Abdominal Pain
Vital Signs / Physical Exam
Vital Signs
Vital Signs
Temp Pulse Resp BP Pulse Ox
97.7 F 99 25 115/79 92
04/07/24 07:55 04/07/24 06:00 04/07/24 06:00 04/07/24 06:00 04/06/24 21:40
Physical Exam
Constitutional: Comfortable
Head: Normocephalic
Eyes: Pupils Equal
Cardiovascular: Regular Rate and S1/S2
Pulmonary: Clear
Gastrointestinal: Soft, Non Tender and Non Distended
Skin: Warm, Dry and Other (mild maculopapular rash in epigastric area and buttocks)
Neurological: Awake, Alert and Oriented
Objective Data
Lab Data
Lab Results
04/07/24 08:42
04/07/24 08:42
Estimated Creat Clear 101 ml/min 04/07/24 08:42
Lactic Acid 0.9 mmol/L (0.7-2.0) 04/04/24 00:24
Total Bilirubin Cancelled 04/06/24 07:44
AST Cancelled 04/06/24 07:44
ALT Cancelled 04/06/24 07:44
Alkaline Phosphatase Cancelled 04/06/24 07:44
Most recent labs reviewed.
Micro Results:
04/04/24 00:24 Blood Culture - Preliminary
Blood/Venous No Growth in 72 hours- Final report to follow
04/03/24 18:57 Urine Culture - Final
Urine No Significant Growth
Imaging:
04/03/2024 CT abdomen/pelvis with IV contrast: Moderate diffuse bladder wall thickening concerning for cystitis versus bladder outlet obstruction. Findings suggesting mild colitis of the sigmoid colon. Moderate fecal matter throughout the colon.
Small pericardial effusion. Please see full dictation for additional detail. Film personally viewed.
[2024-04-07 09:55] LABS: Glucose - Point of Care 241 mg/dl (70-99)
[2024-04-07] MEDS: LANTUS 0.29 UNITS SC (12:03)
[2024-04-07 12:15] LABS: Glucose - Point of Care 199 mg/dl (70-99)
[2024-04-07] MEDS: NOVOLOG FLEXPEN 21 UNITS SC (12:35)
--- NOTE | 2024-04-07 15:40 | PTCARENOTE ---
Patient transitioned off insulin drip. Pulse ox while sleeping on room air is 87%. Notified Resident Jordan. Pulse ox 90-91% on room air while awake. Patient denying pain, no cough. Objectively comfortable.
--- NOTE | 2024-04-07 16:12 | W.PN.HOSP.TC ---
Addendum entered and electronically signed by Rylee Warren MD 04/07/24 17:17:
I saw and evaluated the patient independently. I reviewed the resident�s note and agree with findings and plan as documented by Dr. Ortega..
GENERAL: well developed, well nourished, male with features of trisomy 21 (Down's syndrome) in no apparent distress
HEENT: NC/AT
HEART: regular rate and rhythm, +S1, +S2
LUNGS : clear to auscultation bilaterally
ABDOM: soft, nontender, nondistended, + bowel sounds
EXT: no cyanosis, clubbing, or edema
NEUROLOGIC: grossly intact
Mild Sigmoid Colitis no signs of pyelonephritis on CT scan--stercoral colitis possible --WBC count now in normal range--now on omnicef and flagyl PO----apprec ID input--cultures negative
Type 1 DM--IDDM since age 8 months--blood sugars running high and had high anion gap metabolic acidosis--? DKA although no documentation--pt was started on insulin drip and gap closed--await input from DM ENTRY LEVEL FINANCE--pt on U-100 Levemir AM and PM, trying
to transition back to outpt dosing--transfer to tele once off insulin drip--pt still eating despite being on insulin drip....
Celiac Disease--Continues to have diarrhea, though improved; continue strict gluten free diet
Diffuse Skin Rash-- ID following.
Episodes of Hypoxemia--seems to be when sleeping--cont O2 as able--maybe needs outpt sleep study--check CXR
DVT proph
code status -- FULL CODE
Original Note:
Today's Communication/Plan
-
Pt to be downgraded to Telemetry.
Insulin Drip discontinued, started on sliding scale insulin. Accuchecks ACHS.
Rocephin changed to Cefdenir; Falgyl changed to BID.
CXR today, continue to monitor SaO2.
Assessment / Plan
Assessment / Plan
1. Mild Sigmoid Colitis
-CT abdomen pelvis images reviewed and patient have increased stool burden, mild colitis of sigmoid colon and possibly suggestive stercoral colitis
-Afebrile today, WBC 9.5 down from 11.4.
-ID note reviewed, suggested switching Flagyl to BID and Rocephin to Cefdenir.
-Blood and Urine Cultures Negative
2. IDDM
- Anion Gap Metabolic Acidosis resolved; AGAP 12 today.
- Diabetes RN DISEASE MANAGEMENT consulted and in agreement.
- Insulin drip discontinued; started on sliding scale.
- Pt to be downgraded to telemetry now that he is no longer on insulin drip.
- Accuchecks ACHS
3. Celiac Disease
- Continues to have diarrhea, though improved; continue strict gluten free diet
4. Diffuse Skin Rash
- Continue strict gluten free diet
- ID following.
5. Episodes of Hypoxemia
- Pt downgraded to telemetry; continue O2 monitoring.
- Given history of fevers, CXR ordered.
Anticipated Discharge: 24 - 48 hours
Subjective/Interval History
-
Date of Service: April 07, 2024
Pt having episodes of anxiety overnight. In the morning, would not allow nurses to take blood draws saying that he is worried. Pt was given emotional support and eventually patient was amenable to blood draws.
Pt continues to have mild diarrhea, one episode today.
Per the nurse, patient had an episode of hypoxemia, 87% while sleeping. Pt given 2L O2, and SaO2 elle to 94%. After treatment, pt SaO2 88-90.
Objective Data
-
Labs:
Laboratory Results
04/07/24
08:42
WBC 9.5
Hgb 12.4 L
Hct 35.2 L
Plt Count 251
Sodium 138
Potassium 4.7
Chloride 103
Carbon Dioxide 23
BUN 15
Creatinine 0.9
Glucose 227 H
Calcium 8.2 L
Vital Signs:
Vital Signs
Temp Pulse Resp BP Pulse Ox
98.0 F 102 35 124/85 91
04/07/24 11:55 04/07/24 14:00 04/07/24 14:00 04/07/24 14:00 04/07/24 15:52
I&O
04/06/24 04/07/24 04/08/24
06:59 06:59 06:59
Intake Total 710 / 710 260 / 260 240 / 240
Balance 710 / 710 260 / 260 240 / 240
Review of Systems
-
Respiratory: Reports No Symptoms
Cardiac: Reports No Symptoms
Abdomen/GI: Reports Diarrhea
Psych: Reports Anxious
Physical Exam
-
General: No Apparent Distress and Comfortable
HEENT: Normocephalic and Atraumatic
Respiratory: Clear to Auscultation
Cardiac: Regular Rhythm and S1/S2
GI: Soft and Normal Bowel Sounds
Skin: Warm and Dry
Neuro: Awake and Alert
Psych: Calm
--- NOTE | 2024-04-07 16:38 | PTCARENOTE ---
Report given to Nelsy for transfer to room 2121.
[2024-04-07 17:36] LABS: Glucose - Point of Care 174 mg/dl (70-99)
[2024-04-07] MEDS: NOVOLOG FLEXPEN 15 UNITS SC (18:34)
[2024-04-07] MEDS: NOVOLOG FLEXPEN-MODERATE RESISTANCE 1 UNITS SC (18:35)
[2024-04-07] MEDS: OMNICEF 300 MG PO (20:44)
[2024-04-07] MEDS: FLAGYL 500 MG PO (20:44)
[2024-04-07] MEDS: TYLENOL 650 MG PO (21:28)
[2024-04-07] MEDS: LANTUS 0.12 UNITS SC (21:29)
[2024-04-07 21:36] LABS: Glucose - Point of Care 125 mg/dl (70-99)
[2024-04-08 03:09] VITALS: BP 119/73
[2024-04-08] MEDS: ALPRAZOLAM ODT 0.25 MG PO (04:09)
[2024-04-08] MEDS: TORADOL 15 MG IV (04:19)
[2024-04-08 06:55] LABS: Glucose - Point of Care 177 mg/dl (70-99)
[2024-04-08 07:00] VITALS: BP 124/73
[2024-04-08 07:25] LABS: Hematocrit 33.8 % (39.0-52.0); Hemoglobin 11.9 g/dL (13.0-18.0); Mean Corp Hgb Conc. 35.2 g/dL (33.0-37.0); Mean Corpuscular Hgb 33.6 pg (27.0-31.0); Mean Corpuscular Volume 95.5 fL (80.0-94.0); Mean Platelet Volume 10.2 fL (7.4-10.4); Platelet Count 274 10^3/uL (130-400); Red Blood Cell Count 3.54 10^6/uL (4.70-6.10); Red Cell Dist. Width 13.1 % (11.5-14.5); White Blood Cell Count 9.6 10^3/uL (4.8-10.8)
[2024-04-08 07:32] LABS: Blood Urea Nitrogen 17 mg/dl (9-20); Calcium 7.9 mg/dl (8.4-10.2); Carbon Dioxide 24 mmol/L (22-30); Chloride 102 mmol/L (98-107); Estimated Creatinine Clearance 101 ml/min; Glucose 164 mg/dl (70-99); Potassium 4.3 mmol/L (3.5-5.1); Sodium 139 mmol/L (135-145); eGFR > 60.00
--- NOTE | 2024-04-08 07:35 | PN.DE.MGMTRT ---
Insulin Management
- -
04/08/2024 Diabetes Management Consult Follow up
Patient admitted 04/03 for flank pain, vomiting, fever and DKA. PMH Down Syndrome, celiac disease, type 1 diabetes. Prior to admission was receiving levemir 29 units in AM and 12 units @ HS with humalog SS AC. A1C on admission 9%, cr 1.3, eGFR
>60. Patient is learning disabled.
04/07 Patient transitioned from insulin infusion with lantus 29 units in AM and 15 units novolog AC with low corrective. Glucose since transition range 125 to 174.
04/08 Patient is sleeping soundly, not awakened.
Received 12 units lantus @ HS, fasting glucose this AM 177.
Parents are concerned for low BG as patient unable to identify and communicate symptoms of hypoglycemia.
Will continue current regimen and follow for further needed adjustments.
Discussed with patients nurse, family is not at bedside..
Diabetes History
- -
Type of Diabetes: 1
Pre-Admission Diabetes Regimen
04/07/24 04/08/24
08:42 05:12
Creatinine 0.9 0.9
Lab Results
Hemoglobin A1c 9.0 % (4.0-5.6) H 04/04/24 06:29
Insulin Pump Settings
IP Diabetes Regimen
04/07/24 04/07/24 04/07/24
08:42 09:43 12:01
Glucose 227 H
POC Glucose 241 H 199 H
04/07/24 04/07/24 04/08/24
17:35 21:29 05:12
Glucose 164 H
POC Glucose 174 H 125 H
04/08/24
06:53
Glucose
POC Glucose 177 H
Meal type: Dinner
Meal type: Breakfast
Amount consumed: 35%
Amount consumed: 75%
Patient Education
[2024-04-08] MEDS: OMNICEF 300 MG PO (09:05)
[2024-04-08] MEDS: CLARITIN 10 MG PO (09:05)
[2024-04-08] MEDS: HEPARIN 5000 UNITS SC (09:06)
[2024-04-08] MEDS: FLAGYL 500 MG PO (09:06)
[2024-04-08] MEDS: ZOLOFT 25 MG PO (09:06)
[2024-04-08] MEDS: LANTUS 0.29 UNITS SC (09:07)
[2024-04-08] MEDS: NOVOLOG FLEXPEN-MODERATE RESISTANCE 1 UNITS SC ×2 (09:07→14:55)
[2024-04-08] MEDS: NOVOLOG FLEXPEN 15 UNITS SC ×2 (09:08→14:55)
[2024-04-08] MEDS: DESENEX/MITRAZOL/ZEASORB 1 APPLIC TOPICAL (09:09)
[2024-04-08 11:43] VITALS: BP 114/70
--- NOTE | 2024-04-08 13:13 | W.PN.HOSP.TC ---
Addendum entered and electronically signed by Rylee Warren MD 04/08/24 15:42:
hyponatremia not clinically significant
Addendum entered and electronically signed by Rylee Warren MD 04/08/24 15:17:
I saw and evaluated the patient independently. I reviewed the resident�s note and agree with findings and plan as documented by Dr. Ortega.
GENERAL: well developed, well nourished, male with features of trisomy 21 (Down's syndrome) in no apparent distress
HEENT: NC/AT
HEART: regular rate and rhythm, +S1, +S2
LUNGS : clear to auscultation bilaterally
ABDOM: soft, nontender, nondistended, + bowel sounds
EXT: no cyanosis, clubbing, or edema
NEUROLOGIC: grossly intact
Mild Sigmoid Colitis no signs of pyelonephritis on CT scan--stercoral colitis possible --WBC count now in normal range--now on omnicef and flagyl PO----apprec ID input--cultures negative
Type 1 DM--IDDM since age 8 months--blood sugars running high and had high anion gap metabolic acidosis--? DKA although no documentation--pt was started on insulin drip and gap closed--apprec input from DM MILLER--pt on U-100 Levemir AM and PM,
transition back to outpt dosing--
Celiac Disease--Continues to have diarrhea, though improved; continue strict gluten free diet
Diffuse Skin Rash-- ID following.
Episodes of Hypoxemia--seems to be when sleeping--cont O2 as able--maybe needs outpt sleep study--check CXR
DVT proph
code status -- FULL CODE
ok for d/c
Original Note:
Today's Communication/Plan
-
Patient's condition clinically improved. Change to PO antibiotics and plan to discharge today.
Assessment / Plan
Assessment / Plan
1. Mild Sigmoid Colitis
-Symptoms improving.
-Afebrile today, WBC 9.56, down from 11.4 2 days ago.
-Blood and Urine Cultures remain negative.
-Antibiotics changed to PO Flagyl and PO cefdinir in anticipation of discharge. ID note reviewed, patient will take at home for 5 more days.
-Patient to be discharged today.
2. IDDM
-POC Glucose ranging from 160-170 today.
-Patient to continue home meds upon discharge.
-Patient seen by diabetic [employer], regimen changed to levemir 29 units in am, 12 units qhs, with humalog ss ac.
3. Celiac Disease
- Diarrhea improved; continue strict Gluten free diet.
4. Diffuse Skin Rash
- Continue strict gluten free diet
- Continue miconazole powder
5. Episodes of Hypoxemia
- Patient noted to have SaO2 88 while asleep, but ranges 93-95 while awake, on room air, since last night. This may represent a sleep hypoventilation syndrome or REMI. Patient is recommended to get a sleep study outpatient. Information will be
forwarded to PCP.
- CXR performed to rule out infectious etiology. No evidence of pneumonia. Small atelectasis and effusions noted.
Anticipated Discharge: Today
Subjective/Interval History
-
Date of Service: April 08, 2024
Patient has no acute complaints overnight. States that he is feeling better. Patient denies abdominal pain, nausea, SOB. Per nursing, patient continues to have O2 Sat ~ 88 while he is sleeping, but has been popping back up to the 93-95 range while
awake.
Objective Data
-
Labs:
Laboratory Results
04/08/24
05:12
WBC 9.6
Hgb 11.9 L
Hct 33.8 L
Plt Count 274
Sodium 139
Potassium 4.3
Chloride 102
Carbon Dioxide 24
BUN 17
Creatinine 0.9
Glucose 164 H
Calcium 7.9 L
CXR: Small R pleural effusion, trace L pleural effusion, bibasilar opacities that are most likely atelectasis.
Vital Signs:
Vital Signs
Temp Pulse Resp BP Pulse Ox
97.6 F 93 16 114/70 93
04/08/24 11:43 04/08/24 11:43 04/08/24 11:43 04/08/24 11:43 04/08/24 11:43
I&O
04/07/24 04/08/24 04/09/24
06:59 06:59 06:59
Intake Total 260 / 260 920 / 920
Balance 260 / 260 920 / 920
Review of Systems
-
History Source: Patient and Family
All other systems: Reviewed and negative
Respiratory: Reports No Symptoms
Cardiac: Reports No Symptoms
Abdomen/GI: Reports No Symptoms
Physical Exam
-
General: Well Developed, Well Nourished and Other (with characteristic features of Trisomy 21. )
HEENT: Normocephalic and Atraumatic
Respiratory: Clear to Auscultation (no wheezes, rales or rhonchi)
Cardiac: Regular Rhythm and S1/S2
GI: Soft, Nontender, Nondistended and Normal Bowel Sounds
Skin: Warm and Dry
Neuro: Awake and Alert
Psych: Calm
Data Reviewed
-
Diagnostic Radiology: Report Reviewed by me and Discussed with Family
[2024-04-08 13:50] LABS: Glucose - Point of Care 220 mg/dl (70-99)
--- NOTE | 2024-04-08 13:53 | PN.CDI ---
CDI
- -
CDI:
Physician Documentation Request
Admit Date: 04/03/24 22:51
Dear Doctor Jordan,
patient admitted with sigmoid colitis.
Initial Sodium resulted as follows:
04/03/24 04/04/24 04/04/24
18:33 06:29 14:10
Sodium 135 131 L 131 L
04/05/24
11:44
Sodium 133 L
Could you please provide a diagnosis that supports the above lab abnormalities and additional evaluation/monitoring:
Hyponatremia
Abnormal lab value clinically insignificant
Other
Use of terms such as suspected, likely, concern for, or probable (associated with a specific diagnosis that is being evaluated, monitored, or treated as if it exists) are acceptable and can be coded in the inpatient setting, when documented at the
time of discharge.
Thank you,
Jade Mendenhall RN, BSN
CDI Specialist
tiger text
Please use your independent medical judgment in providing your response.
--- NOTE | 2024-04-08 13:58 | CM ---
Patient seen at bedside with physician and mother. Patient plan is for discharge home today. Patient happy with plan. Patient mother asked all questions with physician and in agreement with plan. CM will continue to follow for discharge planning
needs.
Plan; home with follow up with physician and [facility]
[2024-04-08 14:28] LABS: Glucose - Point of Care 183 mg/dl (70-99)
[2024-04-08 15:46] VITALS: BP 112/69
--- NOTE | 2024-04-08 16:28 | PTCARENOTE ---
Patient discharged home. This RN removed patient's IV and reviewed discharge instructions with patient's mother and caregiver at bedside; mother verbalized understanding. Belongings gathered in room by mother. Tele monitor removed and patient
dressed with assistance of mother, taken down to mother's car at [facility] via staff escort and wheelchair.
--- NOTE | 2024-04-08 19:19 | W.DCSUMMARY ---
Addendum entered and electronically signed by Rylee Warren MD 04/09/24 06:23:
Read, reviewed, and agree. See same day progress note for additional details. Time spent coordinating care, DC planning, review of DC plan of care with resident, transition of care, review of records in EMR, med rec, consults, notes, d/w
consultants, nursing, family, and CM = 45 minutes
Original Note:
Discharge Summary
Discharge Data
Date of Admission: 04/03/24
Date of Discharge: 04/08/24
Total time spent discharging patient (in min): 45
-
Pending Results: No
Hospital Course
Angelito Gatica is a 34 year old male with a past medical history of trisomy 21, celiac disease, and insulin dependent diabetes mellitus type 1 who presented to the emergency department on April 03 2024 with the chief complaint of flank pain. The
patient had an acute onset of left sided flank pain and vomiting, and was found to be febrile in the emergency room. In addition, the patient had been having one week of diffuse body rash which was recently diagnosed as folliculitis and was being
treated with Bactrim prior to presentation. In the emergency department, the patient was given Dilaudid and Toradol for pain, Zofran for nausea and started on fluids. White blood cell count was 14,300 and neutrophil predominant. Patient was febrile
with a temperature of 100.4. Urinalysis did not show infection. CT Scan of the abdomen and pelvis however, showed a mild colitis of the sigmoid colon and moderate diffuse bladder wall thickening concerning for cystitis.
Upon reevaluation on the first day of his admission, the patient was found to meet SIRS criteria, with a fever of 100.4 and tachycardia. Urine cultures and blood cultures were sent, which ultimately did not end up growing any organisms. During the
course of his stay he continued to be on IV Zosyn for 3 days, and on day 4 antibiotics were switched to Rocephin and Flagyl. The patient's pain progressively improved over the course of the stay. However, two issues arose during admission that
complicated the course of his stay. First, the patient continued to spike his blood sugars with glucose ranging from 207 to 472 over the first 3 days of admission. The patient was eventually started on an insulin drip, which managed to alleviate
these hyperglycemic events. The patient met with the diabetic ED[employer] ROLLER, who tailored his insulin requirements while in the hospital, but discharged him back home on his regular regimen. In addition, the patient was found to have low oxygen saturation
while he was asleep, as low as 88%. These saturations would normalize to 93-95 percent while the patient was awake, raising concern for sleep hypoventilation syndrome, or obstructive sleep apnea. A chest x-ray did not show any pathology other than
small pleural effusions, and small atelectasis. It was discussed that the patient should have an outpatient sleep study to elucidate the cause of these hypoxemic events.
During the course of his stay, the patient was seen by infectious disease for the rash that was present upon admission as well. It was thought to be due to a fungal infection, and the patient was started on Miconazole powder to be applied to his
buttocks and groin. The rash improved over the course of his stay, and it was determined that the patient should continue to use this over the counter miconazole powder until the rash resolves.
in conclusion, the patient was discharged to home to be seen in one week by his primary care physician. He is to finish 5 more days of antibiotics including Cefdinir 300 mg orally twice daily, and Metronidazole 500 mg orally twice daily. The patient
should continue to use the miconazole powder until his rash resolves, and he can continue to use his original outpatient insulin dosing schedule. The PCP should follow up with resolution of his symptoms, a follow up complete blood count and complete
metabolic panel, as well as a recommended sleep study.
Discharge Plan
-
Patient Disposition: Home (Routine Discharge)
Discharge Diagnosis/Procedures: Mild sigmoid colitis, Type 1 IDDM, Celiac Disease, Diffuse Skin Rash, Nocturnal Hypoxemia
Condition: Fair
Diet: Diabetic, Carb Controlled
Activity: As tolerated
Blood Work: CBC, BMP in one week with results to primary care physician
Others Tests: Recommended Sleep Study for Nocturnal Hypoxemia
Referrals:
Cipriano Llanes MD [Primary Care Provider] - in less than 1 week
Additional Discharge Medication Instructions: Cefdinir 300 mg PO twice daily for an additional 5 days.
Metronidazole 500 mg PO twice daily, also to continue for an additional 5 days.
Miconazole Over the Counter Powder applied to buttock and groin twice a day until resolution of rash.
Return back to outpatient insulin dosing.
Prescriptions:
New
metronidazole 500 mg Tablet
500 mg PO BID Qty: 10 0RF
cefdinir 300 mg Capsule
300 mg PO BID Qty: 10 0RF
alprazolam 0.25 mg Tablet,Disintegrating
0.25 mg PO Q6HPRN PRN (Reason: anxiety) Qty: 14 0RF
Continued
loratadine 10 MG capsule
10 mg PO DAILY
diphenhydramine HCl 50 mg Capsule
100 mg PO Q6HPRN PRN (Reason: rash)
insulin lispro 100 unit/mL Solution
0 sliding scale dose SC ACHS
Patient Comments:
04/03/24: See scanned paperwork for sliding scale, which takes into accound blood sugar and carbs eaten. Per family, due to difficulties in communication with patient, blood sugar should be closely monitored.
Levemir U-100 Insulin 100 unit/mL Solution
29 unit SC DAILY
Levemir U-100 Insulin 100 unit/mL Solution
12 unit SC HS
Discontinued
sulfamethoxazole-trimethoprim [Bactrim DS] 800-160 mg Tablet
1 tab PO BID
Patient Comments:
04/03/24: to take for 14 days, filled on 03/25/24
Discharge Orders:
Discharge Patient (As Directed); Ordered 04/08/24
Ordered By: Aaron Ortega
Discharge Date and Time
Discharge Date/Time: 04/08/24 16:35
Print Language: TURKMEN
== END 2024-04-08 16:35 | disposition home or self-care (01) | DRG 392 ==
LOC: 2 NORTH 22:51
PROVIDERS: Clinical Nurse Specialist Family Health; Hospitalist; Nurse Practitioner Family; ADMITTING PHYSICIAN Hospitalist; ATTENDING PHYSICIAN Internal Medicine; CONSULT PHYSICIAN Urology; EMERGENCY PHYSICIAN Emergency Medicine; OTHER PHYSICIAN Internal Medicine Infectious Disease; PRIMARYCARE PHYSICIAN Family Medicine
DX: K52.89 Other specified noninfective gastroenteritis and colitis (principal); J98.11 Atelectasis; J90 Pleural effusion, not elsewhere classified; R65.10 Systemic inflammatory response syndrome (SIRS) of non-infectious origin without acute organ dysfunction; E87.20 Acidosis, unspecified; E10.65 Type 1 diabetes mellitus with hyperglycemia; F41.9 Anxiety disorder, unspecified; J30.2 Other seasonal allergic rhinitis; K90.0 Celiac disease; L29.9 Pruritus, unspecified; L73.9 Follicular disorder, unspecified; Q90.9 Down syndrome, unspecified; R09.02 Hypoxemia; M54.9 Dorsalgia, unspecified; R21 Rash and other nonspecific skin eruption; R03.0 Elevated blood-pressure reading, without diagnosis of hypertension; Z79.4 Long term (current) use of insulin; Z79.899 Other long term (current) drug therapy; Z90.49 Acquired absence of other specified parts of digestive tract; Z87.19 Personal history of other diseases of the digestive system
CPT/HCPCS: 71046; 74177; 80048; 80053; 81003; 81015; 82962; 83036; 83605; 83735; 85025; 85027; 87040; 87086; 96361; 96374; 96375; 97162; 99285; Q9967

== ENCOUNTER → 2024-07-07 16:35 | Outpatient (REF) | payer OTHER, SELFPAY | LOC: RAD 16:35 | PROVIDERS: ATTENDING PHYSICIAN Urology; FAMILY PHYSICIAN Family Medicine | DX: R33.9 Retention of urine, unspecified (principal); N39.8 Other specified disorders of urinary system | CPT/HCPCS: 76770 ==